=== PATIENT | female | born 1960 | race Hispanic/Latino ===

== ENCOUNTER 2024-07-02 14:00 | Inpatient (IN) | payer OTHER, MEDICARE ==
[~2024-07-02] VITALS: Ht 157.5 cm; Wt 70.4 kg
[2024-07-05 11:07] LABS: BASOPHILS # (AUTO) 0.03 K/uL (0.00-0.20); BASOPHILS % (AUTO) 0.4 % (0.0-5.0); EOSINOPHILS # (AUTO) 0.37 K/uL (0.00-0.70); EOSINOPHILS % (AUTO) 4.7 % (0.0-8.0); HEMATOCRIT 44.2 % (36-48); IMMATURE GRANULOCYTE ABSOLUTE 0.03 K/uL (0-1); LYMPHOCYTES # (AUTO) 2.3 K/uL (1.0-4.8); LYMPHOCYTES % (AUTO) 29.7 % (21.0-51.0); MEAN CORPUSCULAR HEMOGLOBIN 28.7 pg (27.0-33.0); MEAN CORPUSCULAR HGB CONC 32.4 g/dL (32.0-36.0); MEAN CORPUSCULAR VOLUME 88.6 fL (79-99); MONOCYTES # (AUTO) 0.7 K/uL (0.1-1.0); NEUTROPHILS # (AUTO) 4.4 K/uL (1.8-7.7); NEUTROPHILS % (AUTO) 55.8 % (40.0-77.0); PLATELET COUNT (AUTO) 229 K/uL (130-400); RED BLOOD CELL COUNT(AUTO) 4.99 MIL/uL (4.00-5.50); RED CELL DISTRIBUTION WIDTH 13.6 % (11.0-15.5); WHITE BLOOD COUNT (AUTO) 7.8 K/uL (4.8-10.8)
[2024-07-05 11:22] LABS: CREATININE 0.8 mg/dL (0.5-1.0); POTASSIUM 4.2 mmol/L (3.5-5.1)
[2024-07-05 11:30] VITALS: BP 143/57; PULSE 67; RESP 16; TEMP 97.7
[2024-07-05 11:44] LABS: B-TYPE NATRIURETIC PEPTIDE 18 pg/mL (0-100)
[2024-07-05 12:37] LABS: INR 1.05 (0.85-1.15); PROTHROMBIN TIME 11.3 SEC (9.6-11.6)
[2024-07-05 12:38] LABS: PARTIAL THROMBOPLASTIN TIME 28.5 SEC (26.3-35.5)
[2024-07-05] MEDS ORDERED: CLOP-31 PO (13:44)
[2024-07-05] MEDS ORDERED: ROSU20TA73 PO (13:44)
[2024-07-05] MEDS ORDERED: AEC81 PO (13:44)
[2024-07-05] MEDS ORDERED: METO25TA6 PO (13:44)
[2024-07-05] MEDS ORDERED: SACU1TAB PO (13:44)
[2024-07-05] MEDS ORDERED: METF-446 PO (13:44)
[2024-07-05] MEDS ORDERED: SEMA0.258 SQ (13:44)
[2024-07-05] MEDS ORDERED: EZET10TA48 PO (13:44)
[2024-07-05] MEDS ORDERED: INSU100V37 SQ (13:44)
[2024-07-06] VITALS (35 sets, daily range): BP systolic 91–152; BP diastolic 34–62; PULSE 56–67; RESP 4–26; TEMP 96–98.3; O2SAT 100
[2024-07-06] MEDS: 0.9% NACL 500ML IV.SOLN 0 ML IV ONE (10:17)
[2024-07-06] MEDS: 0.9%NACL 1000ML 1,000 ML IV ONE (10:18)
[2024-07-06] MEDS ORDERED: ATROPINE 1MG SYG IVP ONE (13:57)
[2024-07-06] MEDS ORDERED: IODIXANOL 320 MG/ML 100 ML VIAL ONE (13:57)
[2024-07-06] MEDS ORDERED: HEParin 10,000 UNIT/10ML (1,000 UNIT/ML) VIAL ONE (13:57)
[2024-07-06] MEDS ORDERED: HEParin-NS 1,000 UNIT/500 ML 1,000 ML IV ONE (13:58)
[2024-07-06] MEDS ORDERED: BUPIvacaine/PF 0.25% 30ML VIAL IJ ONE (14:01)
[2024-07-06] MEDS ORDERED: ceFAZolin SODIUM 1 GM VIAL ONE ×2 (14:01→14:36)
[2024-07-06] MEDS ORDERED: ondanSETRON 4MG INJ ONE ×2 (14:16→16:05)
[2024-07-06] MEDS ORDERED: phenylEPHRINE HCL 10 MG/ML 1ML VIAL IV ONE ×2 (14:16→16:30)
[2024-07-06] MEDS ORDERED: MIDAZOLAM HCL 1 MG/ML 2ML VIAL ONE (14:16)
[2024-07-06] MEDS ORDERED: FENTanyl CITRate PF 50 MCG/1 ML 2ML VIAL ONE ×2 (14:16→16:05)
[2024-07-06] MEDS ORDERED: proPOFol 10 MG/ML 20ML VIAL IV ONE (14:16)
[2024-07-06] MEDS ORDERED: LIDOCAINE HCL 1% 10 ML VIAL ONE (14:24)
[2024-07-06] MEDS ORDERED: ATROPINE 0.4MG VIAL IJ ONE (15:29)
[2024-07-06] MEDS ORDERED: DEXTROSE 50%-WATER 50 ML DISP.SYRIN IV PRN (16:00)
[2024-07-06] MEDS ORDERED: ATROPINE 1MG SYG IVP PRN (16:00)
[2024-07-06] MEDS ORDERED: (Semaglutide (Ozempic) 0.5 MG) SQ SCH (16:00)
[2024-07-06] MEDS: 0.9%NACL 10ML VIAL IVP SCH (16:00)
[2024-07-06] MEDS: INSULIN humuLIN R 100 UNIT/ML 3ML SQ SCH (16:30)
[2024-07-06] MEDS: NOREPINEPHRIN 4MG/NS 250ML 250 ML IV PRN (17:36)
[2024-07-06] MEDS: traMADol HCL 50 MG TABLET PO PRN (19:41)
[2024-07-06] MEDS: morPHINE 2 MG SYG IVP PRN (20:11)
[2024-07-06] MEDS: atorVAStatin 40 MG TABLET PO SCH (20:35)
[2024-07-06] MEDS: metFORmin HCL 500 MG TABLET PO SCH (20:35)
[2024-07-06] MEDS: SACUBITRIL/VALSARTAN 1 EACH TABLET PO SCH (20:35)
[2024-07-06] MEDS: metoPROLOL tartRATE 25 MG TAB PO SCH (20:35)
[2024-07-07] VITALS (129 sets, daily range): BP systolic 64–225; BP diastolic 19–107; PULSE 46–87; RESP 4–21; TEMP 97.7–98.7; O2SAT 94–99
[2024-07-07 06:21] LABS: BASOPHILS # (AUTO) 0.02 K/uL (0.00-0.20); BASOPHILS % (AUTO) 0.2 % (0.0-5.0); EOSINOPHILS # (AUTO) 0.08 K/uL (0.00-0.70); HEMATOCRIT 38.1 % (36-48); IMMATURE GRANULOCYTE ABSOLUTE 0.03 K/uL (0-1); LYMPHOCYTES # (AUTO) 1.7 K/uL (1.0-4.8); LYMPHOCYTES % (AUTO) 20.8 % (21.0-51.0); MEAN CORPUSCULAR HEMOGLOBIN 28.9 pg (27.0-33.0); MEAN CORPUSCULAR HGB CONC 32.3 g/dL (32.0-36.0); MEAN CORPUSCULAR VOLUME 89.6 fL (79-99); MONOCYTES # (AUTO) 0.9 K/uL (0.1-1.0); MONOCYTES % (AUTO) 11.3 % (3.0-13.0); NEUTROPHILS # (AUTO) 5.4 K/uL (1.8-7.7); NEUTROPHILS % (AUTO) 66.3 % (40.0-77.0); PLATELET COUNT (AUTO) 192 K/uL (130-400); RED BLOOD CELL COUNT(AUTO) 4.25 MIL/uL (4.00-5.50); RED CELL DISTRIBUTION WIDTH 13.9 % (11.0-15.5); WHITE BLOOD COUNT (AUTO) 8.1 K/uL (4.8-10.8)
[2024-07-07 06:29] LABS: CREATININE 0.8 mg/dL (0.5-1.0); MAGNESIUM 1.8 mg/dL (1.80-2.40); POTASSIUM 4.2 mmol/L (3.5-5.1)
[2024-07-07] MEDS: cloPIDOgrel 75MG TAB PO SCH (08:20)
[2024-07-07] MEDS: ASPIRIN 81 MG EC TAB PO SCH (08:20)
[2024-07-07] MEDS: INSULIN GLARgine 100 UNITS/ML 10 ML VIAL SQ SCH (08:39)
[2024-07-07] MEDS: EZETIMIBE 10 MG TAB PO SCH (11:46)
[2024-07-07] MEDS: ATROPINE 1MG SYG IVP PRN (13:07)
[2024-07-07] MEDS: ondanSETRON 4MG INJ ONE (13:09)
[2024-07-07] MEDS ORDERED: ondanSETRON 4MG INJ IVP PRN (13:30)
[2024-07-07] MEDS: miDODRine HCL 5 MG TABLET PO ONE (14:33)
[2024-07-07] MEDS ORDERED: miDODRine HCL 5 MG TABLET PO SCH (21:00)
[2024-07-08] VITALS (50 sets, daily range): BP systolic 89–124; BP diastolic 29–59; PULSE 42–63; RESP 10–26; TEMP 98; O2SAT 95–97
== END 2024-07-08 13:07 | disposition home or self-care (01) | DRG 35 ==
LOC: EDSTATUS 07-05 14:00 → DAHIP 07-06 08:52 → 2BH 07-06 16:54
PROVIDERS: ADMIT Hospitalist; ATTEND Hospitalist
PROC: B3171ZZ Fluoroscopy of Left Internal Carotid Artery using Low Osmolar Contrast (ICD-10-PCS; 2024-07-06)
PROC: 3E023BZ Introduction of Anesthetic Agent into Muscle, Percutaneous Approach (ICD-10-PCS; 2024-07-06)
PROC: X2AJ336 Cerebral Embolic Filtration, Extracorporeal Flow Reversal Circuit from Left Common Carotid Artery, Percutaneous Approach, New Technology Group 6 (ICD-10-PCS; 2024-07-06)
PROC: 037L3EZ Dilation of Left Internal Carotid Artery with Two Intraluminal Devices, Percutaneous Approach (ICD-10-PCS; principal; 2024-07-06 11:30)
PROC: 06Q Lower Veins, Repair (ICD-10-PCS; 2024-07-06 11:30)
DX: I65.22 Occlusion and stenosis of left carotid artery (principal); I42.9 Cardiomyopathy, unspecified; E11.9 Type 2 diabetes mellitus without complications; I10 Essential (primary) hypertension; I25.10 Atherosclerotic heart disease of native coronary artery without angina pectoris; E78.5 Hyperlipidemia, unspecified; Z79.02 Long term (current) use of antithrombotics/antiplatelets; Z95.1 Presence of aortocoronary bypass graft
CPT/HCPCS: 36415; 37215; 71045; 80048; 82948; 83735; 83880; 85025; 85610; 85730; 86850; 86900; 86901; 86923; 93005; A4606; G0378; J0461; J0690; J1644; J1815; J2250; J2270; J2371; J2405; J2704; J3010; J3490; J7030; J7040; Q9967; A4215; A4216; A4222; A4223; A4649; A4663; A6219; C1713; C1725; C1760; C1769; C1876; C1884; C1894; J0665